=== PATIENT | female | born 1995 | race Caucasian/White ===

== ENCOUNTER 2018-12-03 10:28 | Emergency (ER) | payer BC, MEDICAID, OTHER ==
[~2018-12-03] VITALS: Ht 160 cm; Wt 101.4 kg
[~2018-12-03 10:28] MED LIST: AMOX1TAB64 PO; BUTA1CAP30 PO; CALC200T3 PO; D-ME1CAP40 PO; HYDR15SO3 PO; IBUP-1223 PO; OXYC-302 PO; PREN1TAB60 PO
[2018-12-03 10:44] VITALS: BP 142/110
[2018-12-03 11:13] LABS: BASOPHILS # (AUTO) 0.03 x10^3/uL (0-0.1); BASOPHILS % (AUTO) 0 % (0-1); EOSINOPHILS # (AUTO) 0.15 x10^3/uL (0-0.4); EOSINOPHILS % (AUTO) 1 % (1-7); LYMPHOCYTES # (AUTO) 2.02 x10^3/uL (1-3.4); LYMPHOCYTES % (AUTO) 16 % (22-44); MD NO; MEAN CORPUSCULAR HEMOGLOBIN 29.5 pg (27.0-34.8); MEAN CORPUSCULAR HGB CONC 33.2 g/dL (32.4-35.8); MEAN CORPUSCULAR VOLUME 88.7 fL (80-100); MEAN PLATELET VOLUME 7.8 fL (7.4-10.4); MONOCYTES # (AUTO) 0.48 x10^3/uL (0.2-0.8); MONOCYTES % (AUTO) 4 % (2-9); NEUTROPHILS % (AUTO) 79 % (42-75); PLATELET COUNT 297 x10^3/uL (130-400); RED BLOOD COUNT 5.28 x10^6/uL (3.82-5.3); RED CELL DISTRIBUTION WIDTH 12.9 % (9.6-15.2)
[2018-12-03 11:26] LABS: ALBUMIN 4.3 g/dL (3.4-5.0); ANION GAP 8 mmol/L (5-15); CALCIUM 9.1 mg/dL (8.5-10.1); CHLORIDE 108 mmol/L (98-107); CREATININE 0.79 mg/dL (0.55-1.02)
[2018-12-03 11:30] LABS: MICROSCOPIC NOT IND
[2018-12-03 11:52] LABS: CULTURE INDICATED? NO
--- NOTE | 2018-12-03 11:59 | NUR ---
LUNCH RN: FROM LOBBY TO ROOM. TAKEN TO US AT THIS TIME
--- NOTE | 2018-12-03 11:59 | NUR ---
FUNERAL PRE NEED CONSULTANT: PT TO ED ROOM 38 FROM LOBBY IN NAD AT THIS TIME
--- NOTE | 2018-12-03 12:30 | NUR ---
Pt at ultrasound at this time.
--- NOTE | 2018-12-03 13:09 | NUR ---
Pt back to room from ultrasound. NKECHI. Pt resting on gurney connected to NIBP cuff, continous pulse ox, and blower blast furnace. No needs expressed at this time. Pt c/o RLQ and right flank pain with nausea for "a few days" and a "positive" test with IUD in placed for 3 years. Pt denies vomitting, syncope, trauam, vaginal bleeding, or syncope. CMS intact. Bedrails up x 2, call light within reach.
--- NOTE | 2018-12-03 14:20 | NUR ---
Patient given discharge instructions and they have confirmed that they understand the instructions. Patient ambulatory with steady gait. Pt left with all personal belongings, d/c paperwork, prescription, and work note. NADN. No needs expressed. Pt encouraged to return if symptoms worsen or change.
== END 2018-12-03 14:23 ==
LOC: ED 14:15
DX: O26.891 Other specified pregnancy related conditions, first trimester (principal); R11.0 Nausea; R10.30 Lower abdominal pain, unspecified; Z3A.01 Less than 8 weeks gestation of pregnancy
CPT/HCPCS: 36415; 76830; 80048; 81003; 82040; 84702; 85025; 99284